=== PATIENT | male | born 1995 | race Caucasian/White ===

== ENCOUNTER 2018-02-21 21:19 | Emergency (ER) | payer SELFPAY ==
[2018-02-21 21:21] VITALS: BP 148/96; PULSE 91; RESP 16; TEMP 36.6; O2SAT 98; BMI 25.2
--- NOTE | 2018-02-21 21:45 | RAD_ITS ---
STUDY: X-RAY - RIGHT FOOT CLINICAL: Male, 22 years old. Injury TECHNIQUE: 3 view(s) of the foot. COMPARISON: None. FINDINGS: Normal talus, calcaneus, and tarsal bones. Normal visualized subtalar, talonavicular, calcaneocuboid, tarsal and tarsometatarsal articulations. Normal metatarsi. Normal metatarsophalangeal joint of the great toe. Normal tibial and fibular sesamoid bones. Normal interphalangeal joint of the great toe. Normal phalanges of the great toe. Normal second through fifth metatarsophalangeal joints. Normal interphalangeal joints and phalanges of the lesser toes. The soft tissue structures are unremarkable. There is no demonstrated fracture. RAD/Foot min 3 Views IMPRESSION: Normal x-ray examination of the foot. Electronically Signed: Medardo Maldonado MD at 22:27 EDT , Service support ,
--- NOTE | 2018-02-21 21:45 | RAD_ITS ---
STUDY: X-RAY - RIGHT ANKLE REASON FOR EXAM: Male, 22 years old. Injury. TECHNIQUE: 3 view(s) of the ankle. COMPARISON: None. FINDINGS: Normal visualized distal tibia and fibula. Normal medial and lateral malleoli. Normal tibiotalar articulation and ankle mortise. Normal visualized talus and calcaneus. The visualized subtalar, talonavicular, calcaneocuboid and tarsal articulations are normal. There is no demonstrated fracture. Lateral soft tissue swelling. RAD/Ankle min 3 Views IMPRESSION: Normal x-ray examination of the ankle. Electronically Signed: Medardo Maldonado MD at 22:27 EDT , Service support ,
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
--- NOTE | 2018-02-21 22:36 | ED.DEP ---
ED Disposition - Plan for ED Patient: Chief Complaint: Lower Extremity Injury Instructions: ED Sprain Ankle W X Ray Referrals: Care Physician,No Primary [NON-STAFF] -
[2018-02-21 22:42] VITALS: RESP 18
== END 2018-02-21 22:43 | disposition home or self-care (01) ==
LOC: ED 22:14
PROVIDERS: Emergency Provider Emergency Medicine; Family Provider Nurse Practitioner Family; PCP Nurse Practitioner Family
DX: S93.401A Sprain of unspecified ligament of right ankle, initial encounter (principal); W17.89XA Other fall from one level to another, initial encounter; Y93.9 Activity, unspecified; Y92.89 Other specified places as the place of occurrence of the external cause; Y99.9 Unspecified external cause status; J45.909 Unspecified asthma, uncomplicated
CPT/HCPCS: 73610; 73630; 99282

== ENCOUNTER → 2019-02-15 16:52 | Outpatient (CLI) | payer BC, SELFPAY ==
--- NOTE | 2019-02-15 17:03 | CT_ITS ---
STUDY: CT ABDOMEN AND PELVIS WITH AND WITHOUT CONTRAST REASON FOR EXAM: Male, 23 years old. Abdominal pain. Vomiting. Weight loss. RADIATION DOSAGE (If Supplied By Facility): CTDIvol = ( 10.62 ) mGy, DLP = ( 747.44 ) mGycm TECHNIQUE: Transaxial images were obtained from the dome of the diaphragm to the symphysis pubis without oral contrast. 100mL IV/Oral Isovue 370 was administered. Sagittal and coronal images were reconstructed. Individualized dose optimization techniques were used for this CT. COMPARISON: None. FINDINGS: The visualized lung bases are unremarkable. The visualized portions of the heart are within normal limits. Normal liver. Normal gallbladder and extrahepatic biliary system. Normal spleen. Normal pancreas. Normal bilateral adrenal glands. Normal right kidney. Normal left kidney. Normal visualized stomach. Normal small intestine. Normal colon. The appendix is visualized and appears normal. Normal abdominal aorta. Normal inferior vena cava. Normal retroperitoneum. Normal urinary bladder. Normal abdominal wall. Normal osseous structures. CT/CT Abd/Pelvis W/WO Contrast IMPRESSION: Within normal limits enhanced CT of the abdomen and pelvis. Electronically Signed: Amrita Alcaraz MD at 22:36 EDT Tel , Service support ,
== END ==
PROVIDERS: Family Provider Nurse Practitioner Family; PCP Nurse Practitioner Family; Referring Provider Internal Medicine Gastroenterology; Visit Provider Internal Medicine Gastroenterology
DX: R11.10 Vomiting, unspecified (principal); R63.4 Abnormal weight loss
CPT/HCPCS: 74178; Q9967; A4216

== ENCOUNTER 2020-08-12 19:21 | Emergency (ER) | payer BC, SELFPAY ==
[2020-08-12 19:24] VITALS: BP 155/101; PULSE 86; PULSE 87; RESP 17; RESP 18; TEMP 36.4; O2SAT 98; O2SAT 99; BMI 25.5
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
== END 2020-08-12 20:50 | disposition home or self-care (01) ==
LOC: ED 20:39
PROVIDERS: Emergency Provider Emergency Medicine
DX: S62.617A Displaced fracture of proximal phalanx of left little finger, initial encounter for closed fracture (principal); W23.0XXA Caught, crushed, jammed, or pinched between moving objects, initial encounter; Y93.9 Activity, unspecified; Y92.89 Other specified places as the place of occurrence of the external cause; Y99.9 Unspecified external cause status; J45.909 Unspecified asthma, uncomplicated; K21.9 Gastro-esophageal reflux disease without esophagitis; F17.220 Nicotine dependence, chewing tobacco, uncomplicated
CPT/HCPCS: 26725; 73130; 99283

== ENCOUNTER 2021-12-23 16:43 | Outpatient (CLI) | payer BC, SELFPAY ==
[2021-12-23 17:30] LABS: Absolute Lymphocyte Count 1.89 X10^3/uL (0.83-4.51); Absolute Neutrophil Count 3.1 X10^3/uL (2.0-7.7); Basophil# 0.05 X10^3/uL; Basophil% 0.9 % (0-1); Eosinophil# 0.09 X10^3/uL; Eosinophils% 1.6 % (0-5); Hematocrit 42.9 % (40-54); Hemoglobin 14.2 g/dL (13.0-16.5); Lymphocyte # 1.89 X10^3/ul (0.83-4.51); Mean Corp Hgb Conc 33.1 g/dL (32-36); Mean Corpuscular Hgb 29.1 pg (27.0-32.0); Mean Corpuscular Volume 87.9 fL (80-94); Mean Platelet Vol. 10.5 fl (6.2-12.0); Monocyte# 0.39 X10^3/uL; NRBC Flagged by Analyzer 0 % (0-5); Neutrophil # 3.13 X10^3/uL (2.7-7.7); Neutrophil % 56.3 % (47-70); Platelet Count 243 K/mm3 (150-450); RBC Distribution Width CV 12.7 % (11.6-14.6); RBC Distribution Width SD 41.3 fl (35.1-43.9); Red Blood Count 4.88 M/mm3 (4.6-6.2); White Blood Count 5.6 K/mm3 (4.4-11.0)
[2021-12-23 17:46] LABS: Erythrocyte Sedimentation Rate 2 mm/hr (0-20)
[2021-12-23 17:53] LABS: Vitamin B12 349 pg/mL (211-911)
[2021-12-23 18:00] LABS: Hemoglobin A1c 5.1 % (3.8-5.6)
[2021-12-23 18:28] LABS: ALB/GLOB Ratio 1.2 RATIO (0.9-2.4); AST(SGOT) 22 U/L (15-37); Alanine Aminotransfer ALT/SGPT 32 U/L (16-61); Albumin, Serum 4.5 g/dL (3.2-5.0); Alkaline Phosphatase 83 U/L (45-117); Anion Gap 3 (5-15); BUN 17 mg/dL (7-18); BUN/Creat Ratio 19.6 RATIO (10-20); CRP < 2.90 mg/L (0.0-3.0); Calcium,Total 9.1 mg/dL (8.5-10.1); Chloride 103 mmol/L (98-107); Creatinine, Serum 0.87 mg/dL (0.70-1.30); EST Glomerular Filtration Rate 113 mL/min (>60); Est Glom Filt Rate - Afr Amer 136 mL/min (>60); Free T3 3.3 pg/mL (2.18-3.98); Globulin 3.6 g/dL (2.2-4.2); Glucose 93 mg/dL (74-106); Potassium 3.6 mmol/L (3.5-5.1); Protein, Total 8.1 g/dL (6.4-8.2); Sodium Level 137 mmol/L (136-145); T4 Free Direct 0.97 ng/dL (0.76-1.46); Thyroid Stim Hormone (TSH) 4.35 uIU/mL (0.358-3.74)
[2021-12-28 08:11] LABS: Clam 0.23 kU/L (Class 0/I); Codfish <0.10 kU/L (Class 0); Corn 0.34 kU/L (Class I); Egg, White <0.10 kU/L (Class 0); Milk (Cow) <0.10 kU/L (Class 0); Peanut 0.44 kU/L (Class I); SCALLOP 0.34 kU/L (Class I); Shrimp 0.73 kU/L (Class II); Soybean 0.33 kU/L (Class I); Walnut, (Food) 0.32 kU/L (Class I); Wheat 0.45 kU/L (Class I)
[2021-12-28 16:44] LABS: SESAME SEED 0.48 kU/L (Class I)
[2021-12-29 02:07] LABS: Endomysial Antibody IgA Negative (Negative); Immunoglobulin A 173 mg/dL (90-386); Immunoglobulin E 351 IU/mL (6-495); Immunoglobulin G 991 mg/dL (603-1613); Immunoglobulin M 83 mg/dL (20-172)
[2021-12-29 13:29] LABS: CCP IgG Antibodies 6 units (0-19); Gastrin, Serum 39 pg/mL (0-115); t-Transglutaminase IgA <2 U/mL (0-3)
[2022-01-19 00:07] LABS: Coproporphyrin I, Urine 30 ug/L (Undefined); Coproporphyrin I,24 Hour 46 ug/24 hr (0-24); Coproporphyrin III, Urine 106 ug/L (Undefined); Coproporphyrin III,24 Hour 162 ug/24 hr (0-74); Heptacarboxylporph.,24 Hour 6 ug/24 hr (0-4); Heptacarboxylporph.,Urine 4 ug/L (Undefined); Hexacarboxylporph.,24 Hour <2 ug/24 hr (0-1); Hexacarboxylporph.,Urine <1 ug/L (Undefined); Pentacarboxylporph,24 Hour 3 ug/24 hr (0-4); Pentacarboxylporphyrin,Urine 2 ug/L (Undefined); Uroporphyrin, 24 Hour 14 ug/24 hr (0-24); Uroporphyrin,Urine 9 ug/L (Undefined)
[2022-01-19 14:50] LABS: 5-HIAA, 24UR 5.5 mg/24 hr (0.0-14.9); 5-HIAA, UR 3.6 mg/L (Undefined)
== END 2021-12-23 23:59 | disposition home or self-care (01) ==
LOC: LAB 16:47
PROVIDERS: PCP Family Medicine; Referring Provider Nurse Practitioner Adult Health; Visit Provider Nurse Practitioner Adult Health
DX: R11.2 Nausea with vomiting, unspecified (principal); K62.5 Hemorrhage of anus and rectum; R19.8 Other specified symptoms and signs involving the digestive system and abdomen
CPT/HCPCS: 36415; 80053; 81050; 82607; 82746; 82784; 82785; 82941; 83036; 83497; 83516; 84120; 84439; 84443; 84481; 85025; 85652; 86003; 86140; 86200; 86255

== ENCOUNTER 2022-02-24 05:14 | Day surgery (SDC) | payer BC, SELFPAY ==
[2022-02-24] VITALS (7 sets, daily range): BP systolic 119–151; BP diastolic 76–95; PULSE 44–57; RESP 16–18; TEMP 36–36.4; O2SAT 98–100; BMI 24.3
--- NOTE | 2022-02-24 | IMM_PTH ---
PATIENT: ARYA VANG LOC: EN U#:[id number] AGE/SX: 26/M ROOM: RE02/24/[address]: Dr. Slade Aburto DO : 1995 BED: DIS: 02/24/2022 SPEC #: [id number] RECD: 02/24/22 12:48 STATUS: FRANKLYN REQ #: [id number] APRIL: 02/24/22 00:[address]: Slade Aburto DEPT: IMMUNOHISTOCHEMISTRY RECD BY: Felicia Jose ENTERED: 02/24/22 12:49 SP TYPE: IMMUNO OTHR DR: Dr. Anika Saba, DO Tissues: Gastric mucous membrane Procedures: H Pylori (initial) PHYSICIAN & INSTITUTION [place] [id number] SPECIMEN INFORMATION: Tissue Source: Gastric Antrum Biopsy Clinical Info: Nausea and vomiting Specimen Number: [id number] CPT code: 15434 METHODOLOGY: Deparaffinized sections of prefer/formalin-fixed tissue or PAP/DQ stained slides are incubated with monoclonal/polyclonal antibodies/oligonucleotide probes. Localization is made via biotin free immunoperoxidase method. Appropriate controls are performed and reacted as expected. Results on target cell population are indicated in the following table: RESULTS: ANTIBODY / CLONE RESULT Block B H Pylori (polyclonal) negative These tests were developed and their performance characteristics determined by [facility]. They may not have been cleared or approved by the U.S. Food and Drug Administration. The FDA has determined that such clearance or approval is not necessary. The above immunohistochemical/dualISH markers are ordered and reviewed by the Pathologist. INTERPRETATION: Gastric antrum, biopsy: Negative for Helicobacter pylori organisms. SJ:preet 02/25/2022
[2022-02-24] MEDS: Lactated Ringers 1,000 ML 15 ML IV (05:51)
--- NOTE | 2022-02-24 06:30 | EGD_PTH ---
PATIENT: ARYA VANG LOC: EN U#:[id number] AGE/SX: 26/M ROOM: RE02/24/[address]: Dr. Slade Aburto DO : 1995 BED: DIS: 02/24/2022 SPEC #: [id number] RECD: 02/24/22 10:50 STATUS: FRANKLYN CANDIDA #: [id number] APRIL: 02/24/22 06:[address]: Slade Aburto DEPT: SURGICAL PATHOLOGY RECD BY: Felicia Jose ENTERED: 02/24/22 11:47 SP TYPE: EGD BIOPSY OT DR: Dr. Anika Saba DO Tissues: A - Duodenum, NOS B - Gastric mucous membrane C - Gastric mucous membrane D - Gastric mucous membrane E - Esophagus, NOS F - Esophagus, NOS G - Ileum, NOS H - COLON BIOPSY Procedures: Special Stain Group II Surgery Specimen Level IV Alcian Blue/PAS (control) HEADER OPERATION: [place] PRE-[place] DIAGNOSIS: Nausea and vomiting, alternating constipation/diarrhea, blood per rectum TISSUE SUBMITTED: A - Duodenal Bulb biopsy, B - Gastric Antrum for H. Pylori and pathology, C - Gastric Body biopsy, D - Gastric Cardia biopsy, E - Distal Esophagus biopsy, F - Random Esophagus biopsy, G - Terminal Ileum biopsy, H - Random Colon biopsy MICROSCOPIC DIAGNOSIS A. Duodenal bulb, biopsy: Fragments of duodenal mucosa with mild Annika gland hyperplasia. Focal mild mucosal congestion and hemorrhage. B. Gastric antrum, biopsy: Mild gastritis. See microscopic description and comment. C. Gastric body, biopsy: Mild gastritis. See microscopic description. D. Gastric cardia, biopsy: Mild gastritis. See microscopic description. E. Distal esophagus, biopsy: Fragments of gastroesophageal mucosa with mild chronic inflammation. Intestinal metaplasia (goblet cell metaplasia) not identified. See comment. F. Esophagus, random biopsy: Fragments of gastroesophageal mucosa with minimal chronic inflammation. Intestinal metaplasia (goblet cell metaplasia) not identified. See comment. G. Terminal ileum, biopsy: Fragments of small intestinal mucosa, no pathologic diagnosis. H. Colon, random biopsy: Fragments of colonic mucosa, no pathologic diagnosis. SJ:preet 02/25/2022 COMMENT B. The results of immunohistochemistry for Helicobacter pylori will be reported separately ([id number]). E & F. Alcian blue/PAS stain with matched control is used in the evaluation of the specimen. MICROSCOPIC DESCRIPTION Slides are reviewed. B-D. The specimen shows fragments of gastric mucosa with chronic inflammatory cell infiltrates in the lamina propria consisting of lymphocytes and plasma cells, consistent with mild chronic gastritis. GROSS DESCRIPTION A - Received in fixative is one container labeled with the patient's name and designated biopsy duodenal bulb. The specimen consists of two irregular fragments of light rosario soft tissue that in aggregate measure 0.4 x 0.3 x 0.1 cm. The specimen is totally submitted in one cassette. B - Received in fixative is one container labeled with the patient's name and designated gastric antrum biopsy. The specimen consists of two irregular fragments of light rosario soft tissue that in aggregate measure 0.4 x 0.3 x 0.1 cm. The specimen is totally submitted in one cassette. C - Received in fixative is one container labeled with the patient's name and designated biopsy gastric body. The specimen consists of two irregular fragments of light rosario soft tissue that in aggregate measure 0.5 x 0.4 x 0.1 cm. The specimen is totally submitted in one cassette. D - Received in fixative is one container labeled with the patient's name and designated biopsy gastric cardia. The specimen consists of one irregular fragment of light rosario soft tissue that measures 0.4 x 0.3 x 0.1 cm. The specimen is totally submitted in one cassette. E - Received in fixative is one container labeled with the patient's name and designated biopsy distal esophagus. The specimen consists of two irregular fragments of light rosario soft tissue that in aggregate measure 0.6 x 0.3 x 0.1 cm. The specimen is totally submitted in one cassette. F - Received in fixative is one container labeled with the patient's name and designated biopsy random esophagus. The specimen consists of multiple irregular fragments of light rosario soft tissue that in aggregate measure 1 x 0.3 x 0.1 cm. The specimen is totally submitted in one cassette. G - Received in fixative is one container labeled with the patient's name and designated biopsy terminal ileum. The specimen consists of multiple irregular fragments of light rosario soft tissue that in aggregate measure 0.8 x 0.4 x 0.1 cm. The specimen is totally submitted in one cassette. H - Received in fixative is one container labeled with the patient's name and designated biopsy random colon. The specimen consists of multiple irregular fragments of light rosario soft tissue that in aggregate measure 1 x 0.5 x 0.1 cm. The specimen is totally submitted in one cassette. / SJ:rg 02/24/2022 TC:3 CPT: 64343 x8, 75719 x2
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
--- NOTE | 2022-02-24 07:15 | OP.EGD_ITS ---
Patient Name: Neeraj Serna Procedure Date: 02/24/2022 6:43 AM Date of : 1995 Age: 26 Procedure: Upper GI endoscopy Indications: Epigastric abdominal pain, Functional Dyspepsia, Suspected esophageal reflux Providers: Slade Aburto DO Medicines: Monitored Anesthesia Care Patient Profile: This is a 26 year old male. Refer to note in patient chart for documentation of history and physical. Patient has symptoms of chronic abdominal cramping and chronic nausea. Complications: No immediate complications. Procedure: Pre-Anesthesia Assessment: - Prior to the procedure, a History and Physical was performed, and patient medications and allergies were reviewed. The risks and benefits of the procedure and the sedation options and risks were discussed with the patient. All questions were answered and informed consent was obtained. Patient identification and proposed procedure were verified by the physician in the pre-procedure area. Mental Status Examination: alert and oriented. Airway Examination: normal oropharyngeal airway and neck mobility. Respiratory Examination: clear to auscultation. CV Examination: normal. Prophylactic Antibiotics: The patient does not require prophylactic antibiotics. Prior Anticoagulants: The patient has taken no previous anticoagulant or antiplatelet agents. ASA Grade Assessment: II - A patient with mild systemic disease. After reviewing the risks and benefits, the patient was deemed in satisfactory condition to undergo the procedure. The anesthesia plan was to use moderate sedation / analgesia (conscious sedation). Immediately prior to administration of medications, the patient was re-assessed for adequacy to receive sedatives. The heart rate, respiratory rate, oxygen saturations, blood pressure, adequacy of pulmonary ventilation, and response to care were monitored throughout the procedure. The physical status of the patient was re-assessed after the procedure. After obtaining informed consent, the endoscope was passed under direct vision. Throughout the procedure, the patient's blood pressure, pulse, and oxygen saturations were monitored continuously. The Colonoscope was introduced through the mouth, and advanced to the second part of duodenum. The upper GI endoscopy was accomplished without difficulty. The patient tolerated the procedure well. Scope In: 6:45:15 AM Scope Out: 6:53:24 AM Total Procedure Duration Time 0 hours 8 minutes 9 seconds Findings: The Z-line was irregular and was found 39 cm from the incisors. Biopsies were taken with a cold forceps for histology. Verification of patient identification for the specimen was done. Estimated blood loss was minimal. Patchy mildly erythematous mucosa without bleeding was found in the cardia, in the gastric body and in the gastric antrum. Biopsies were taken with a cold forceps for histology. Verification of patient identification for the specimen was done. Estimated blood loss was minimal. Patchy mildly erythematous mucosa without active bleeding and with no stigmata of bleeding was found in the duodenal bulb. Biopsies were taken with a cold forceps for histology. Verification of patient identification for the specimen was done. Estimated blood loss was minimal. Impression: - Z-line irregular, 39 cm from the incisors. Biopsied. - Erythematous mucosa in the cardia, gastric body and antrum. Biopsied. - Erythematous duodenopathy. Biopsied. Recommendation: - Discharge patient to home. - Resume previous diet. - Continue present medications. - Await pathology results. Procedure Code(s): --- Professional --- 53211, Esophagogastroduodenoscopy, flexible, transoral; with biopsy, single or multiple CPT copyright 2017 [employer]. All rights reserved. The codes documented in this report are preliminary and upon [employer] school [employer] review may be revised to meet current compliance requirements. Slade Aburto DO 02/24/2022 7:14:45 AM This report has been signed electronically. Number of Addenda: 1 Note Initiated On: 02/24/2022 6:43 AM Addendum Number: 1 Addendum Date: 07/22/2022 6:31:16 AM MAC was used as sedation for this procedure. Slade Aburto DO 07/22/2022 6:31:21 AM This report has been signed electronically.
--- NOTE | 2022-02-24 07:15 | OP.CCLET_ITS ---
07/22/2022 Anika Saba Do Re : Upper GI endoscopy procedure for Neeraj Serna Dear Dr. Saba This procedure was performed on February. My impressions and recommendations are as follows: Impressions : - Z-line irregular, 39 cm from the incisors. Biopsied. - Erythematous mucosa in the cardia, gastric body and antrum. Biopsied. - Erythematous duodenopathy. Biopsied. Recommendations : - Discharge patient to home. - Resume previous diet. - Continue present medications. - Await pathology results. My findings are described in the full procedure note, which is enclosed. If I can be of further assistance, please feel free to contact me at . Sincerely, Slade Aburto, 02/24/2022 7:14:45 AM This report has been signed electronically.
--- NOTE | 2022-02-24 07:19 | OP.COLON_ITS ---
Patient Name: Neeraj Serna Procedure Date: 02/24/2022 6:53 AM Date of : 1995 Age: 26 Procedure: Colonoscopy Indications: Clinically significant diarrhea of unexplained origin Providers: Slade Aburto DO Medicines: Monitored Anesthesia Care Patient Profile: This is a 26 year old male. Refer to note in patient chart for documentation of history and physical. Patient has symptoms of chronic abdominal cramping and chronic nausea. Last Colonoscopy: none. The patient's first colonoscopy is today. Complications: No immediate complications. Procedure: Pre-Anesthesia Assessment: - Prior to the procedure, a History and Physical was performed, and patient medications and allergies were reviewed. The risks and benefits of the procedure and the sedation options and risks were discussed with the patient. All questions were answered and informed consent was obtained. Patient identification and proposed procedure were verified by the physician in the pre-procedure area. Mental Status Examination: alert and oriented. Airway Examination: normal oropharyngeal airway and neck mobility. Respiratory Examination: clear to auscultation. CV Examination: normal. Prophylactic Antibiotics: The patient does not require prophylactic antibiotics. Prior Anticoagulants: The patient has taken no previous anticoagulant or antiplatelet agents. ASA Grade Assessment: II - A patient with mild systemic disease. After reviewing the risks and benefits, the patient was deemed in satisfactory condition to undergo the procedure. The anesthesia plan was to use moderate sedation / analgesia (conscious sedation). Immediately prior to administration of medications, the patient was re-assessed for adequacy to receive sedatives. The heart rate, respiratory rate, oxygen saturations, blood pressure, adequacy of pulmonary ventilation, and response to care were monitored throughout the procedure. The physical status of the patient was re-assessed after the procedure. After I obtained informed consent, the scope was passed under direct vision. Throughout the procedure, the patient's blood pressure, pulse, and oxygen saturations were monitored continuously. The Colonoscope was introduced through the anus and advanced to the terminal ileum. The colonoscopy was performed without difficulty. The patient tolerated the procedure well. The quality of the bowel preparation was good. Scope In: 6:55:50 AM Scope Withdrawal Time 0 hours 9 minutes 43 seconds Scope Out: 7:07:58 AM Total Procedure Duration Time 0 hours 12 minutes 8 seconds Findings: The perianal and digital rectal examinations were normal. An area of mildly congested mucosa was found in the ascending colon and in the cecum. Biopsies for histology were taken with a cold forceps from the ascending colon, right colon, left colon, transverse colon, right transverse colon, left transverse colon, descending colon, sigmoid colon and rectum for evaluation of microscopic colitis. A patchy area of the terminal ileum was congested. Biopsies were taken with a cold forceps for histology. Estimated blood loss was minimal. Impression: - Congested mucosa in the ascending colon and in the cecum. Biopsied. - Congested mucosa in the terminal ileum. Biopsied. Recommendation: - Discharge patient to home. - Resume previous diet. - Continue present medications. - Await pathology results. - Repeat colonoscopy in 5 years for surveillance based on pathology results. - Return to GI office. Procedure Code(s): --- Professional --- 95256, Colonoscopy, flexible; with biopsy, single or multiple CPT copyright 2017 [employer]. All rights reserved. The codes documented in this report are preliminary and upon edgerman review may be revised to meet current compliance requirements. Slade Aburto DO 02/24/2022 7:18:23 AM This report has been signed electronically. Number of Addenda: 1 Note Initiated On: 02/24/2022 6:53 AM Addendum Number: 1 Addendum Date: 07/22/2022 6:31:30 AM MAC was used as sedation for this procedure. Slade Aburto DO 07/22/2022 6:31:37 AM This report has been signed electronically.
--- NOTE | 2022-02-24 07:19 | OP.CCLET_ITS ---
07/22/2022 Anika Saba Do Re : Colonoscopy procedure for Neeraj Serna Dear Dr. Saba This procedure was performed on February. My impressions and recommendations are as follows: Impressions : - Congested mucosa in the ascending colon and in the cecum. Biopsied. - Congested mucosa in the terminal ileum. Biopsied. Recommendations : - Discharge patient to home. - Resume previous diet. - Continue present medications. - Await pathology results. - Repeat colonoscopy in 5 years for surveillance based on pathology results. - Return to GI office. My findings are described in the full procedure note, which is enclosed. If I can be of further assistance, please feel free to contact me at . Sincerely, Slade Aburto, 02/24/2022 7:18:23 AM This report has been signed electronically.
== END 2022-02-24 07:59 | disposition home or self-care (01) ==
LOC: EN 05:16 → AC 05:17
PROVIDERS: PCP Family Medicine; Referring Provider Family Medicine; Visit Provider Internal Medicine Gastroenterology
PROC: 0DJD8ZZ Inspection of Lower Intestinal Tract, Via Natural or Artificial Opening Endoscopic (ICD-10-PCS; CPT 45378; principal; 2022-02-24 06:25)
DX: K29.70 Gastritis, unspecified, without bleeding (principal); R19.7 Diarrhea, unspecified; K59.00 Constipation, unspecified; R10.13 Epigastric pain; R11.2 Nausea with vomiting, unspecified; K63.89 Other specified diseases of intestine; R19.8 Other specified symptoms and signs involving the digestive system and abdomen; K62.5 Hemorrhage of anus and rectum
CPT/HCPCS: 45380; 43239; 87426; 88305; 88313; 88342; J7120; J2405

== ENCOUNTER → 2022-07-19 | Outpatient (CLI) | payer BC, SELFPAY ==
--- NOTE | 2022-07-19 08:03 | RAD_ITS ---
PROCEDURE: Air contrast Upper GI with Small Bowel Follow Through DATE OF EXAMINATION: 07/19/2022. INDICATION: Male, 27 years old. Right lower quadrant pain. Vomiting. Nausea. FLUOROSCOPY TIME (if supplied): (1:04) minutes/seconds. 26 images were obtained. TECHNIQUE: Radiographic and fluoroscopic images of the distal esophagus, stomach, and entire small intestine were obtained following the oral ingestion of barium. COMPARISON: None. FINDINGS: The heel splitter film of the abdomen demonstrates a normal bowel gas pattern. There are no abnormal calcifications or organomegaly demonstrated. The visualized osseous structures are normal. The esophagus is unremarkable. No evidence of obstruction. No mass lesion is seen. No evidence of gastroesophageal reflux. The stomach and duodenum are unremarkable. No evidence of ulceration. The patient is status post cholecystectomy. A single contrast small bowel follow through exam demonstrates the small bowel to have no evidence for stricture, ulceration or mass. The transit time is normal at 30 minutes. RAD/Upper GI/w Small Bowel IMPRESSION: Unremarkable air contrast upper GI series and small bowel follow-through examination. Electronically Signed: Hayden Chow MD at 10:52 EDT ,
== END | disposition home or self-care (01) ==
PROVIDERS: PCP Family Medicine; Referring Provider Nurse Practitioner Adult Health; Visit Provider Nurse Practitioner Adult Health
DX: R11.2 Nausea with vomiting, unspecified (principal); R68.81 Early satiety
CPT/HCPCS: 74246; 74248

== ENCOUNTER → 2025-05-07 | Outpatient (CLI) | payer BC, SELFPAY ==
[2025-05-07 15:56] LABS: Hematocrit 43.6 % (40-54); Hemoglobin 14.8 g/dL (13.0-16.5); Immature Granulocytes Count 0.020 X10^3/uL (0.0-0.0); Mean Corp Hgb Conc 33.9 g/dL (32-36); Mean Corpuscular Volume 85.2 fL (80-94); Mean Platelet Vol. 10.5 fl (6.2-12.0); NRBC Flagged by Analyzer 0 % (0-5); Platelet Count 217 K/mm3 (150-450); RBC Distribution Width CV 12.9 % (11.6-14.6); RBC Distribution Width SD 40.0 fl (35.1-43.9); Red Blood Count 5.12 M/mm3 (4.6-6.2); White Blood Count 5.7 K/mm3 (4.4-11.0)
[2025-05-07 16:46] LABS: Anion Gap 14 (5-15); BUN 13 mg/dL (4-19); BUN/Creat Ratio 16.4 RATIO (10-20); Calcium,Total 9.5 mg/dL (7.6-11.0); Carbon Dioxide 23.5 mmol/L (21.0-32.0); Chloride 99 mmol/L (98-108); Glucose 82 mg/dL (70-99); Potassium 3.4 mmol/L (3.3-5.1)
== END | disposition home or self-care (01) ==
PROVIDERS: PCP Family Medicine; Referring Provider Student in an Organized Health Care Education/Training Program; Visit Provider Student in an Organized Health Care Education/Training Program
DX: Z01.818 Encounter for other preprocedural examination (principal)
CPT/HCPCS: 36415; 80048; 85025